=== PATIENT | male | born 2000 | race Caucasian/White ===

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

== ENCOUNTER 2024-06-12 19:00 | Emergency (ER) | payer MEDICAID, OTHER ==
[~2024-06-12] VITALS: Ht 180.3 cm; Wt 77.3 kg
[~2024-06-12 19:00] MED LIST: ASPI-1 PO; IBUP-1022 PO; KEFL500C17 PO
[2024-06-12 19:04] VITALS: BP 153/94; TEMP 96.6; O2SAT 97
[2024-06-12 20:54] LABS: Trichomonas vaginalis (AMP) NOT DETECTED (NEGATIVE)
[2024-06-12 21:17] LABS: GC DNA AMPLIFICATION NEGATIVE (NEGATIVE)
== END 2024-06-12 20:59 | disposition home or self-care (01) ==
LOC: M ED 19:00
DX: S23.3XXA Sprain of ligaments of thoracic spine, initial encounter (principal); X58.XXXA Exposure to other specified factors, initial encounter; R16.1 Splenomegaly, not elsewhere classified; Z79.82 Long term (current) use of aspirin; Z79.1 Long term (current) use of non-steroidal anti-inflammatories (NSAID); Z79.2 Long term (current) use of antibiotics; Y99.9 Unspecified external cause status; Y92.9 Unspecified place or not applicable; Y93.9 Activity, unspecified

== ENCOUNTER 2025-05-10 00:43 | Emergency (ER) | payer OTHER ==
[~2025-05-10] VITALS: Ht 180.3 cm; Wt 66.4 kg
[~2025-05-10 00:43] MED LIST changes: -IBUP-1022 PO; +IBUP600T42 PO
[2025-05-10] MEDS ORDERED: DISU1TAB7 PO (00:47)
[2025-05-10 02:38] LABS: KETONE, URINE AUTO RFX NEGATIVE (NEGATIVE); LEUKOCYTE ESTERASE UR AUTO RFX NEGATIVE (NEGATIVE); MUCUS, URINE RFX SMALL (NEGATIVE); NITRITE, URINE AUTO RFX NEGATIVE (NEGATIVE); RBC, URINE AUTO RFX 0 /HPF (0-3); SQUAM EPITHELIAL CELL UR AURFX 0 /HPF (0-6); WBC, URINE AUTO RFX 0 /HPF (0-3)
[2025-05-10 05:17] LABS: Trichomonas vaginalis (AMP) NOT DETECTED (NEGATIVE)
[2025-05-10 05:41] LABS: GC DNA AMPLIFICATION NEGATIVE (NEGATIVE)
[2025-05-10 07:09] VITALS: BP 166/91; TEMP 98; O2SAT 100
== END 2025-05-10 07:11 | disposition home or self-care (01) ==
LOC: M ED 00:43
DX: R33.9 Retention of urine, unspecified (principal); M87.051 Idiopathic aseptic necrosis of right femur; M87.052 Idiopathic aseptic necrosis of left femur; F10.10 Alcohol abuse, uncomplicated; K59.00 Constipation, unspecified; Z79.899 Other long term (current) drug therapy

== ENCOUNTER → 2025-06-12 | Outpatient (CLI) | payer SELFPAY ==
[~2025-06-12] MED LIST changes: +DISU1TAB7 PO
== END ==
LOC: M SOG 07:36
PROVIDERS: ATTEND Physician Assistant
DX: M25.551 Pain in right hip (principal); M25.552 Pain in left hip; Z53.9 Procedure and treatment not carried out, unspecified reason